=== PATIENT | female | born 1970 | race Caucasian/White ===

== ENCOUNTER 2017-11-20 11:17 | Emergency (ER) | payer OTHER ==
[~2017-11-20] VITALS: Ht 162.6 cm; Wt 90.7 kg
[~2017-11-20 11:17] MED LIST: ALBU90OI INH; CIPR500 PO; CIPRO500 MG PO; CLIN300 PO; CYCL10 PO; Cleocin HCl150 MG PO; ESCI10 PO; Esgic Tablet1 EACH PO; Flagyl500 MG PO; GABA300 PO; HYDACE5 PO; INSLIS75I SUBQ; Imitrex100 MG; LISI5 PO; Lovastatin10 MG PO; METF500 PO; Norco 10-325 T1 EACH PO; Norco 5-325 Ta1 EACH PO; OLAN5 PO; OMEP20ER PO; OXCA150 PO; OXCA300 PO; OXYACE5T PO; PHENA100 PO; PRED10 PO; PROM25 PO; Percocet 5-3251 EACH PO; Prednisone20 MG PO; QUET100 PO; SUMA25 PO; TOPI50 PO; TRAZ50 PO; Ultram50 MG PO; Woman's Laxative5 MG PO; Zofran Odt4 MG SL; Zofran4 MG PO
[2017-11-20 12:06] LABS: BASOPHILS ABSOLUTE AUTO 0.04 K/mm3 (0.00-0.23); BASOPHILS PERCENT AUTO 0 % (0-2); EOSINOPHILS ABSOLUTE AUTO 0.03 K/mm3 (0.00-0.68); EOSINOPHILS PERCENT AUTO 0 % (0-6); Hematocrit 47.8 % (33.0-51.0); IMMATURE GRAN ABSOLUTE AUTO 0.06 K/mm3 (0.00-0.10); IMMATURE GRAN PERCENT AUTO 0 % (0-1); LYMPHOCYTES ABSOLUTE AUTO 2.11 K/mm3 (0.84-5.20); LYMPHOCYTES PERCENT AUTO 15 % (21-46); MONOCYTES ABSOLUTE AUTO 1.59 K/mm3 (0.16-1.47); MONOCYTES PERCENT AUTO 11 % (4-13); Mean Corpuscular HGB 29.6 pg (26.0-34.0); Mean Corpuscular HGB Conc 33.5 g/dL (31.5-36.5); Mean Corpuscular Volume 88 fL (80-100); Mean Platelet Volume 9.8 fL (9.1-12.4); NEUTROPHILS ABSOLUTE AUTO 10.49 K/mm3 (1.96-9.15); NEUTROPHILS PERCENT AUTO 73 % (41-73); Platelet Count 353 K/mm3 (150-400); RDW Coefficient Variation 13.4 % (11.7-14.2); RDW Standard Deviation 43.5 fL (35.1-46.3); Red Blood Cell Count 5.41 M/mm3 (3.80-5.20); White Blood Cell Count 14.32 K/mm3 (4.00-11.30)
[2017-11-20 12:17] LABS: Anion Gap 7 mmol/L (6-16); Blood Urea Nitrogen 16 mg/dL (8-24); CO2, Blood 24 mmol/L (21-32); Calcium, Blood 8.8 mg/dL (8.5-10.1); Chloride, Blood 110 mmol/L (98-108); Glomerular Filtration Rate >60 (60-); Glucose, Blood 86 mg/dL (70-99); Magnesium, Blood 2.4 mg/dL (1.6-2.4); Potassium, Blood 4.2 mmol/L (3.5-5.5); Sodium, Blood 141 mmol/L (136-145)
[2017-11-20] MEDS ORDERED: Ultram50 MG PO (13:53)
[2017-11-20] MEDS ORDERED: Robaxin-750750 MG PO (13:53)
== END 2017-11-20 14:10 | disposition home or self-care (01) ==
LOC: ER 11:17
PROVIDERS: Emergency Medicine
DX: R07.89 Other chest pain (principal); I47.1 Supraventricular tachycardia; M54.2 Cervicalgia; F17.200 Nicotine dependence, unspecified, uncomplicated; Z79.899 Other long term (current) drug therapy
CPT/HCPCS: 36415; 72040; 80048; 83735; 84484; 85025; 93005; 93010; 96374; 96375; 99284; J0153; J1885; J3010

== ENCOUNTER 2018-10-25 01:00 | Emergency (ER) | payer OTHER ==
[~2018-10-25] VITALS: Ht 175.3 cm; Wt 104.3 kg
[~2018-10-25 01:00] MED LIST changes: +Imitrex100 MG PO; +LAMO100 PO; +LATUDA40 MG PO; +LOVA40 PO; +MAGNESIUM250 MG PO; +METO25ER PO; +NAPR220 PO; +Robaxin-750750 MG PO; +TOPI100 PO; +Voltaren100 GM TOP
[2018-10-25 02:55] LABS: BASOPHILS ABSOLUTE AUTO 0.05 K/mm3 (0.00-0.23); BASOPHILS PERCENT AUTO 0 % (0-2); EOSINOPHILS ABSOLUTE AUTO 0.01 K/mm3 (0.00-0.68); EOSINOPHILS PERCENT AUTO 0 % (0-6); Hematocrit 45.5 % (33.0-51.0); Hemoglobin 15.3 g/dL (11.5-16.0); IMMATURE GRAN ABSOLUTE AUTO 0.05 K/mm3 (0.00-0.10); IMMATURE GRAN PERCENT AUTO 0 % (0-1); LYMPHOCYTES ABSOLUTE AUTO 1.68 K/mm3 (0.84-5.20); LYMPHOCYTES PERCENT AUTO 15 % (21-46); MONOCYTES ABSOLUTE AUTO 0.92 K/mm3 (0.16-1.47); MONOCYTES PERCENT AUTO 8 % (4-13); Mean Corpuscular HGB 29.8 pg (26.0-34.0); Mean Corpuscular HGB Conc 33.6 g/dL (31.5-36.5); Mean Corpuscular Volume 89 fL (80-100); Mean Platelet Volume 9.1 fL (9.1-12.4); NEUTROPHILS ABSOLUTE AUTO 8.86 K/mm3 (1.96-9.15); NEUTROPHILS PERCENT AUTO 77 % (41-73); Platelet Count 316 K/mm3 (150-400); RDW Coefficient Variation 12.5 % (11.7-14.2); RDW Standard Deviation 40.8 fL (35.1-46.3); Red Blood Cell Count 5.14 M/mm3 (3.80-5.20); White Blood Cell Count 11.57 K/mm3 (4.00-11.30)
[2018-10-25 03:18] LABS: Alanine Aminotransfer (ALT/SGP 23 U/L (12-78); Albumin, Blood 3.4 g/dL (3.4-5.0); Albumin/Globulin Ratio 0.9 (0.8-1.8); Alk Phos 81 U/L (50-136); Anion Gap 6 mmol/L (6-16); Aspartate Aminotrans (AST/SGOT 12 U/L (12-37); Bilirubin, Total 0.5 mg/dL (0.1-1.0); Blood Urea Nitrogen 11 mg/dL (8-24); Bun/Creatinine Ratio 12.4 (12.0-20.0); CO2, Blood 26 mmol/L (21-32); Calcium, Blood 8.1 mg/dL (8.5-10.1); Chloride, Blood 111 mmol/L (98-108); Creatinine, Blood 0.88 mg/dL (0.40-1.00); Ethanol (Alcohol), Blood, Med <3 mg/dL; Free Thyroxine 1.05 ng/dL (0.70-1.60); Globulin, Blood 3.6 g/dL (2.2-4.0); Glomerular Filtration Rate >60 (60-); Glucose, Blood 102 mg/dL (70-99); Potassium, Blood 3.9 mmol/L (3.5-5.5); Sodium, Blood 143 mmol/L (136-145); Troponin I 0.056 ng/mL (0.000-0.040)
== END 2018-10-25 03:30 | disposition home or self-care (01) ==
LOC: ER 01:00
PROVIDERS: Emergency Medicine
DX: I47.1 Supraventricular tachycardia (principal); F17.210 Nicotine dependence, cigarettes, uncomplicated; Z79.899 Other long term (current) drug therapy
CPT/HCPCS: 80053; 84439; 84443; 84484; 85025; 93005; 93010; 96361; 96374; 96375; 99284-25; G0480; J0153; J1885; J2405; J3010; J7030

== ENCOUNTER 2019-03-14 07:55 | Day surgery (SDC) | payer OTHER ==
[~2019-03-14] VITALS: Ht 162.6 cm; Wt 93.8 kg
--- NOTE | 2019-03-14 10:01 | NUR ---
03/14/19 1001 Carlota Pena V PT REPORTS CONSTANT CRAMPING PAIN IN LOWER ABDOMEN, 03/03. DR. FOX AWARE AND INSTRUCTED PT TO REMAIN LAYING ON HER L SIDE UNTIL CRAMPING PASSES. PT GIVEN WARM BLANKET TO PLACE ON LOWER ABDOMEN.
== END 2019-03-14 10:27 | disposition home or self-care (01) ==
LOC: ORSCSDS 07:55
PROVIDERS: Internal Medicine Gastroenterology
PROC: 0DJD8ZZ Inspection of Lower Intestinal Tract, Via Natural or Artificial Opening Endoscopic (ICD-10-PCS; principal; 2019-03-14 09:30)
DX: R19.5 Other fecal abnormalities (principal); K57.30 Diverticulosis of large intestine without perforation or abscess without bleeding; K64.8 Other hemorrhoids; F31.9 Bipolar disorder, unspecified; Z86.73 Personal history of transient ischemic attack (TIA), and cerebral infarction without residual deficits; E66.9 Obesity, unspecified; F17.210 Nicotine dependence, cigarettes, uncomplicated; Z68.36 Body mass index [BMI] 36.0-36.9, adult; Z79.899 Other long term (current) drug therapy
CPT/HCPCS: J2704; J7120

== ENCOUNTER → 2019-10-05 | Outpatient (CLI) | payer OTHER ==
[2019-10-10 13:08] LABS: HPV 16 Negative (Negative); HPV 18 Negative (Negative); HPV OTHER HR TYPES Negative (Negative)
== END ==
LOC: LAB 16:06 → LAB SHORT 16:06
PROVIDERS: Nurse Practitioner Family
DX: Z12.4 Encounter for screening for malignant neoplasm of cervix (principal)
CPT/HCPCS: 87624; G0123

== ENCOUNTER 2022-08-13 13:19 | Day surgery (SDC) | payer OTHER ==
[~2022-08-13] VITALS: Ht 162.6 cm; Wt 104.0 kg
[~2022-08-13 13:19] MED LIST changes: +ACET325 PO; +Bentyl10 MG PO; +Flonase 0.05% N16 GM; +Florastor250 MG PO; -LOVA40 PO; +METR500 PO; +ONDA4ODT MM; +PANT40 PO; +Zantac150 MG PO
[2022-08-13] MEDS ORDERED: MAGCIT300 (14:31)
[2022-08-13] MEDS ORDERED: OMEP20ER (14:32)
--- NOTE | 2022-08-13 14:48 | NUR ---
08/13/22 1448 Vanessa Matias TWO ATTEMPTS AT IV. FIRST ATTMEMPT IN R HAND INFILTRATED BY MA. SECOND ATTEMPT BY MA IN R AC SUCESSFUL.
--- NOTE | 2022-08-13 18:59 | NUR ---
08/13/22 1859 Vince White POST OPERATIVE COMPLAINT OF SEVERE ABDOMINAL PAIN BROUGHT TO ATTENTION OF DR ZACARIAS AND DR WARD. PATIENT PROVIDED FENTANYL 100MCG IV AT 1740 PER VERBAL ORDER FROM DR ZACARIAS. PT PRESENTS INCONSOLABLE, AGITATED DESPITE FENTANYL. TAKEN TO CT FOR SCAN TO DETERMINE POSSIBLE PERFORATION AND WAS ADMITTED TO SURGICAL FLOOR ROOM 210 AT 1825 FOR OBSERVATION. REPORT GIVEN TO DOUGIE WILSON BY JHONATHAN AND DR ZACARIAS.
== END 2022-08-13 18:25 | disposition short-term general hospital (02) ==
LOC: ORSCSDS 13:19
PROVIDERS: Internal Medicine Gastroenterology
PROC: 0D757ZZ Dilation of Esophagus, Via Natural or Artificial Opening (ICD-10-PCS; principal; 2022-08-13 15:00)
PROC: 0DB58ZX Excision of Esophagus, Via Natural or Artificial Opening Endoscopic, Diagnostic (ICD-10-PCS; principal; 2022-08-13 15:00)
PROC: 0DB78ZX Excision of Stomach, Pylorus, Via Natural or Artificial Opening Endoscopic, Diagnostic (ICD-10-PCS; principal; 2022-08-13 15:00)
PROC: 0DB98ZX Excision of Duodenum, Via Natural or Artificial Opening Endoscopic, Diagnostic (ICD-10-PCS; principal; 2022-08-13 15:00)
DX: K21.9 Gastro-esophageal reflux disease without esophagitis (principal); K29.70 Gastritis, unspecified, without bleeding; R13.10 Dysphagia, unspecified; K44.9 Diaphragmatic hernia without obstruction or gangrene; R10.13 Epigastric pain; R11.0 Nausea; Z79.899 Other long term (current) drug therapy; I10 Essential (primary) hypertension; J44.9 Chronic obstructive pulmonary disease, unspecified; F17.210 Nicotine dependence, cigarettes, uncomplicated; E66.01 Morbid (severe) obesity due to excess calories; Z68.41 Body mass index [BMI] 40.0-44.9, adult; E78.00 Pure hypercholesterolemia, unspecified
CPT/HCPCS: 71260; A9270; J0461; J2250; J2405; J2704; J3010; J7120; Q9967; Q9968